=== PATIENT | male | born 1980 | race Caucasian/White ===

== ENCOUNTER 2024-12-21 08:42 | Emergency (ER) | payer OTHER ==
[2024-12-21] MEDS: Lidocaine 1% 5 ML VIAL INJECT ONE (09:28)
[2024-12-21] MEDS: Bacitracin/Neomycin/Polymyxin B Oint 28.4 GM Tube TOP ONE (10:12)
== END 2024-12-21 10:24 ==
LOC: KA.ED 08:42
DX: S61.112A Laceration without foreign body of left thumb with damage to nail, initial encounter (principal); F17.200 Nicotine dependence, unspecified, uncomplicated; W26.9XXA Contact with unspecified sharp object(s), initial encounter; Y99.0 Civilian activity done for income or pay
CPT/HCPCS: 12001; 99282; J2003